=== PATIENT | female | born 1955 | race Caucasian/White ===

== ENCOUNTER → 2017-02-14 | Outpatient (CLI) | payer BC ==
[~2017-02-14] MED LIST: REGADENOSON 0.4 MG/5 ML DISP.SYRIN. IV ONE
--- NOTE | 2017-02-14 15:01 | CARD ---
APPROVED REPORT EXAM: Two-dimensional and M-mode echocardiogram with Doppler and color Doppler. Other Information Quality : GoodHR: 72bpm Rhythm : NSR INDICATION Coronary vasospasm 2D DIMENSIONS RVDd3.0 (2.9-3.5cm)Left Atrium(2D)3.7 (1.6-4.0cm) IVSd1.1 (0.7-1.1cm)Aortic Root(2D)2.5 (2.0-3.7cm) LVDd4.3 (3.9-5.9cm)LVOT Diameter2.2 (1.8-2.4cm) PWd1.1 (0.7-1.1cm)LVDs2.7 (2.5-4.0cm) FS (%) 37.8 %SV57.7 ml LVEF(%)68.2 (>50%) Aortic Valve AoV Peak Jerry.220.5cm/sAoV VTI44.3cm AO Peak GR.19.5mmHgLVOT Peak Jerry.153.9cm/s AO Mean GR.10mmHgAVA (VMAX)2.68cm2 Mitral Valve MV E Ohywjaaq259.2cm/sMV E Peak Gr.6mmHg MV DECEL [id number] A Nntdipog69.3cm/s MV E Mean Gr.2mmHgE/A Ratio1.3 MV A Epzqlzmk31vt Pulmonary Valve PV Peak Ewegxrok089.2cm/s Tricuspid Valve TR P. Ydylzprq035bj/sTR Peak Gr.41mmHg Pulmonary Vein S1 Xdmhrnkd65.4cm/sD2 Gnmbkcia02.6cm/s PVa mqypadty34cbdz LEFT VENTRICLE The left ventricle is normal size. There is mild concentric left ventricular hypertrophy. The left ve ntricular systolic function is normal. The Ejection Fraction is 65-70%. There is normal LV segmental wall motion. The left ventricular diastolic function and filling is normal for age. RIGHT VENTRICLE The right ventricle is normal size. There is normal right ventricular wall thickness. The right ventr icular systolic function is normal. ATRIA The left atrium is mildly dilated. The right atrium size is normal. The interatrial septum is intact with no evidence for an atrial septal defect or patent foramen ovale as noted on 2-D or Doppler imagi ng. AORTIC VALVE The aortic valve is mildly sclerotic. The aortic valve is probably bicuspid. Doppler and Color Flow r evealed no significant aortic regurgitation. There is no significant aortic valvular stenosis. MITRAL VALVE Mitral annular calcification is mild. The mitral valve leaflets are thickened. There is no evidence o f mitral valve prolapse. There is no mitral valve stenosis. Doppler and Color Flow revealed mild mitr al regurgitation. TRICUSPID VALVE Doppler and Color Flow revealed mild tricuspid regurgitation. The pulmonary artery systolic pressure is estimated at 44 mmHg. There is mild pulmonary hypertension. PULMONIC VALVE The pulmonic valve is not well visualized but appears to open adequately. Doppler and Color Flow reve aled no pulmonic valvular regurgitation. There is no pulmonic valvular stenosis by spectral Doppler. GREAT VESSELS The aortic root is normal in size. The ascending aorta is normal in size. The pulmonary artery is nor mal. The IVC is normal in size and collapses >50% with inspiration. PERICARDIAL EFFUSION There is no evidence of significant pericardial effusion. Critical Notification Critical Value: No <Conclusion> The left ventricular systolic function is normal. The Ejection Fraction is 65-70%. There is normal LV segmental wall motion. Mild mitral regurgitation. Mild tricuspid regurgitation. The pulmonary artery systolic pressure is estimated at 44 mmHg. There is no evidence of significant pericardial effusion.
--- NOTE | 2017-02-15 12:48 | RAD ---
APPROVED REPORT Test Type: Pharmacological Stress Nurse/Tech: Laurie Jarrett R.N. Test Indications: coronary vasospasm Cardiac History: cad Medications: see ehr Medical History: see ehr Resting ECG: sr Resting Heart Rate: 66 bpm Resting Blood Pressure: 122/67mmHg Pretest Chest Pain: No chest pain Nurse/Tech Notes lungs cta, heart tones regular Consent: The procedure was explained to the patient in lay terms. Informed consent was witnessed. Roni eout was entered into [employer]. History and Stress Test performed by Laurie Jarrett R.N. Pharm. Details Pharmacologic stress testing was performed using 0.4mg per 5ml of regadenoson given intravenously ove r 7-10 seconds. Stress Symptoms No chest pain or symptoms. POST EXERCISE Reason for Termination: Infusion complete Target HR: No Max HR: 96 bpm Max Blood Pressure: 140/66mmHg Chest Pain: No. Arrhythmia: No. ST Change: No. INTERPRETATION Stress EKG Conclusion: Baseline EKG showed sinus rhythm. No ischemic changes at peak stress. No arr hythmias. Imaging Protocol IMAGE PROTOCOL: Rest Tc-99m/stress Tc-99m 2 days Rest: Stress: Viability: Radiopharm.Tc99m WecsswikcHk76v Sestamibi Dose31.4mCi 32mCi Duration 15min. 15min. Img Date 02/14/2017 02/15/2017 Inj-Img Odkr15zoq. 60min. Rest Admin Site:IV - Right HandAdministrator:NATALIA Kay Stress Admin Site: IV - Left HandAdministrator: Joseph Green, (R)(N) STRESS DATA End Diast. Vol.65.0mlAv. Heart Rate73.0bpm End Syst. Vol.11.0mlCO Index BSA0.0L/min Myocardial Yjjv186.0gEject. Gtdeydim66.0% Stress Rates Pk. Fill Rate4.42EDV/secLVtime Pk. Fill 230.45msec Pk. Empty Rate5.38ESV/secLVtime Pk. Kzbmq924.76msec 06/29 Pk. Fill1.20EDV/sec Stress Scores Regional WT0.00Summed WT0.00 Regional WM0.00Summed WM0.00 Study quality was good. Left Ventricular size was at Rest and Stress. Lung uptake was Normal. Left Ventricular ejection fraction is 83%. LV Perfusion Scintigraphic images did not show any fixed or reversible defects. However, there is transient ische hiren dilation seen in the stress images. Wall Motion Normal regional wall motion. LV Perf. Quant 17 Seg. SSS1.00 17 Seg. SRS0.00 17 Seg. SDS1.00 Stress Defect Extent (% LAD)0.00Rest Defect Extent (% LAD)0.00Rev. Defect Extent (% LAD)0.00 Stress Defect Extent (% LCX) 7.50Rest Defect Extent (% LCX)0.00Rev. Defect Extent (% LCX)7.50 Stress Defect Extent (% RCA)0.00Rest Defect Extent (% RCA)0.00Rev. Defect Extent (% RCA)0.00 Stress Defect Extent (% DIMPLE)1.30Rest Defect Extent (% DIMPLE)0.00Rev. Defect Extent (% DIMPLE)1.30 Conclusion 1. Regadenoson cardioisotope stress test did not show any evidence of ischemia or infarct. 2. However, there is transient ischemic dilation seen in stress images. Consider cardiac cath based on level of clinical suspicion. 3. Normal left ventricular systolic function with ejection fraction calculated at 83%.
== END | disposition home or self-care (01) ==
LOC: NM 10:35
PROVIDERS: ATTEND Internal Medicine Cardiovascular Disease
DX: I08.1 Rheumatic disorders of both mitral and tricuspid valves (principal); I20.1 Angina pectoris with documented spasm
CPT/HCPCS: 78452; 93017; 93306; 96374; 96375; A9500; J2785

== ENCOUNTER → 2017-02-25 | Outpatient (CLI) | payer BC ==
[2017-02-25] VITALS (10 sets, daily range): BP systolic 109–153; BP diastolic 58–74
[~2017-02-25] VITALS: Ht 157.5 cm; Wt 97.5 kg
[~2017-02-25] MED LIST changes: +ASCO500C PO; +ASPI-630 PO; +CALC500T30 PO; +CHLO1CAP PO; +CHLO750T PO; +CHOL100013 PO; +CONTRAST GIVEN MC PRN; +CRESTOR5 MG PO; +CYCL10TA2 PO; +DICL100G18 TP; +DICL112S2 TP; +ESCITALOPRAM OX20 MG PO; +ESOM40CA PO; +FEXO180T16 PO; +HEPARIN for IV BOLUS 10,000 UNIT/10 ML VIAL. IART ONE; +HEPARIN for IV BOLUS 10,000 UNIT/10 ML VIAL. ONE; +IODIXANOL 320 MG/ML 100 ML VIAL. ONE; +IOHEXOL 300 MG/ML 100ML VIAL. IART ONE; +IOHEXOL 300 MG/ML 100ML VIAL. ONE; +ISOS60TA2 PO; +IV 1/2 NORMAL SALINE 1,000 ML IV SCH; +LEVO50TA5 PO; +LIDOCAINE 2% 20 ML VIAL. IJ ONE; +LIDOCAINE 2% 20 ML VIAL. ONE; +LOSA25TA4 PO; +MAGN400C PO; +METO100T11 PO; +MIDAZOLAM HCL/PF 2 MG/2 ML VIAL. IV ONE; +MIDAZOLAM HCL/PF 2 MG/2 ML VIAL. ONE; +NITR0.4T SL; +NITROGLYCERIN 200 MCG/2 ML SYRINGE FOR CATH/VASC LAB. IART ONE; +NITROGLYCERIN 200 MCG/2 ML SYRINGE FOR CATH/VASC LAB. ONE; +OMEG100021 PO; -REGADENOSON 0.4 MG/5 ML DISP.SYRIN. IV ONE; +UBID100C26 PO; +VERAPAMIL 5 MG/2 ML VIAL. IART ONE; +VERAPAMIL 5 MG/2 ML VIAL. ONE; +fentaNYL PF VIAL 100 MCG/2 ML VIAL IV ONE; +fentaNYL PF VIAL 100 MCG/2 ML VIAL ONE
[2017-02-25 07:13] LABS: HEMATOCRIT 38.1 % (36.0-47.0); HEMOGLOBIN 12.7 g/dL (12.0-15.5); RED BLOOD COUNT 4.29 x10^6/uL (3.50-5.40); RED CELL DISTRIBUTION WIDTH 12.5 % (11.5-14.5); WHITE BLOOD COUNT 6.3 x10^3/uL (4.0-11.0)
[2017-02-25 07:25] LABS: PROTHROMBIN TIME PATIENT 12.4 SEC (11.7-14.0)
[2017-02-25 07:32] LABS: CALCIUM 9.7 mg/dL (8.5-10.1); GFR 56.2; POTASSIUM 4.1 mmol/L (3.5-5.1)
--- NOTE | 2017-02-25 09:19 | PDOC ---
MODERATE SEDATION ASSESSMENT RISKS/ALTERNATIVES Risks/Alternatives Risks and alternatives of this type of sedation and procedure discussed with: RISK/ALTERNATIVES: Patient H & P ON CHART H & P H & P on chart and reviewed for co-morbid conditions and appropriate labs. H&P ON CHART: Yes STATUS PREG STATUS ASSESSED: N/A MEDS/ALLERGIES REVIEWED Meds/Allergies Reviewed Medications and Allergies including time and route of recently administered narcotics and sedatives. MEDS/ALLERGIES REVIEWED: Yes ASA RATING ASA RATING: II AIRWAY ASSESSMENT Airway Assessment Airway patency, oral function limitations, presence of caps, crowns, dentures, partials, and ability to extend neck assessed. AIRWAY ASSESSMENT: Yes MALLAMPATI SCORE MALLAMPATI SCORE: II PRE-SEDATION ASSESSMENT PRE-SEDATION ASSESSMENT: Yes CHARLES TEMPLE MD Feb 25, 2017 09:19
--- NOTE | 2017-02-25 10:00 | CARD ---
APPROVED REPORT Procedure(s) performed: Left heart catheterization, selective coronary angiography and left ventricul ography via right transradial approach Moderate sedation: 25 minutes INDICATION The indication(s) include : Unstable angina, nonsustained ventricular tachycardia. PROCEDURE NARRATIVE After explaining the risks, benefits and alternative options, informed consent was obtained from layla ent. Patient was brought to the cardiac Coin Machine Operator and right wrist was prepped and draped in the usual fashion after confirming a positive modified Wayne's test. Arterial access was obtained in the [facility] radial artery and a 6 Jamaican sheath was inserted. 6 Jamaican Yared and 6 Jamaican JL 3.5 catheters we re used to perform selective angiography of the right and left coronary arteries respectively. 6 [facility] pigtail catheter was used to perform left ventriculography. Patient tolerated the procedure well . Hemostasis was achieved using TR band. There were no immediate complications. The following find ings were noted. FINDINGS 1. Hemodynamics: Left ventricular end-diastolic pressure of 37 mmHg. No pullback gradient across th e aortic valve. 2. Left ventriculography: Normal left ventricle systolic function with ejection fraction estimated at 65-70%. No significant mitral regurgitation seen. 3. Coronary angiography: a. The left main coronary artery arose from the left sinus of Valsalva, was short, gave rise to the left anterior descending and left circumflex arteries and did not show any significant stenosis. b. The left anterior descending artery did not show any significant stenosis. c. The left circumflex artery did not show any significant stenosis. d. The right coronary artery was a large and dominant vessel arising from the right sinus of Valsalv a that showed 30% stenosis in the midsegment. Conclusion 1. No significant coronary artery disease 2. Normal left ventricle systolic function with ejection fraction estimated at 65-70%. Recommendations Medical Therapy
== END | disposition home or self-care (01) ==
LOC: CCL 06:33
PROVIDERS: ATTEND Internal Medicine Cardiovascular Disease
DX: I20.0 Unstable angina (principal); I47.2 Ventricular tachycardia; I25.10 Atherosclerotic heart disease of native coronary artery without angina pectoris; E78.00 Pure hypercholesterolemia, unspecified; I10 Essential (primary) hypertension; E03.9 Hypothyroidism, unspecified; F32.9 Major depressive disorder, single episode, unspecified; Z87.39 Personal history of other diseases of the musculoskeletal system and connective tissue; Z86.69 Personal history of other diseases of the nervous system and sense organs; Z88.2 Allergy status to sulfonamides; Z88.8 Allergy status to other drugs, medicaments and biological substances; Z79.01 Long term (current) use of anticoagulants
CPT/HCPCS: 36415; 80048; 85027; 85610; 85730; 93458; C1769; C1892; J1644; J2250; J3010; J3490; Q9967; 99152; 99153; J2001

== ENCOUNTER 2017-07-30 21:54 | Emergency (ER) | payer BC ==
[2017-07-30] MEDS: IBUPROFEN 600 MG TABLET. PO ×2 (22:22)
== END 2017-07-30 23:08 | disposition home or self-care (01) ==
LOC: ER 21:54
DX: S93.402A Sprain of unspecified ligament of left ankle, initial encounter (principal); Z88.2 Allergy status to sulfonamides; Z88.8 Allergy status to other drugs, medicaments and biological substances; X58.XXXA Exposure to other specified factors, initial encounter; Y93.01 Activity, walking, marching and hiking; Y92.481 Parking lot as the place of occurrence of the external cause; Y99.8 Other external cause status
CPT/HCPCS: 29515; 73610; 99284

== ENCOUNTER → 2018-04-20 | Outpatient (CLI) | payer BC ==
[2017-07-30 22:08] VITALS: BP 138/67
[~2018-04-20] MED LIST changes: -CONTRAST GIVEN MC PRN; -HEPARIN for IV BOLUS 10,000 UNIT/10 ML VIAL. IART ONE; -HEPARIN for IV BOLUS 10,000 UNIT/10 ML VIAL. ONE; -IODIXANOL 320 MG/ML 100 ML VIAL. ONE; -IOHEXOL 300 MG/ML 100ML VIAL. IART ONE; -IOHEXOL 300 MG/ML 100ML VIAL. ONE; -IV 1/2 NORMAL SALINE 1,000 ML IV SCH; -LIDOCAINE 2% 20 ML VIAL. IJ ONE; -LIDOCAINE 2% 20 ML VIAL. ONE; -LOSA25TA4 PO; +LOSA25TA5 PO; +METO-247 PO; -METO100T11 PO; -MIDAZOLAM HCL/PF 2 MG/2 ML VIAL. IV ONE; -MIDAZOLAM HCL/PF 2 MG/2 ML VIAL. ONE; -NITROGLYCERIN 200 MCG/2 ML SYRINGE FOR CATH/VASC LAB. IART ONE; -NITROGLYCERIN 200 MCG/2 ML SYRINGE FOR CATH/VASC LAB. ONE; -VERAPAMIL 5 MG/2 ML VIAL. IART ONE; -VERAPAMIL 5 MG/2 ML VIAL. ONE; -fentaNYL PF VIAL 100 MCG/2 ML VIAL IV ONE; -fentaNYL PF VIAL 100 MCG/2 ML VIAL ONE
--- NOTE | 2018-04-20 13:46 | CARD ---
MR#: [id number] Date of Study: 04/20/2018 Ordering Physician: CHARLES TEMPLE, Referring Physician: CHARLES TEMPLE, Tech: Maribel Vasques APPROVED REPORT EXAM: Two-dimensional and M-mode echocardiogram with Doppler and color Doppler. Other Information Quality : AverageHR: 82bpm INDICATION CAD RISK FACTORS Hypertension Hyperlipidemia Diabetes 2D DIMENSIONS RVDd3.1 (2.9-3.5cm)Left Atrium(2D)4.0 (1.6-4.0cm) IVSd0.8 (0.7-1.1cm)Aortic Root(2D)2.4 (2.0-3.7cm) LVDd5.1 (3.9-5.9cm)LVOT Diameter2.1 (1.8-2.4cm) PWd1.0 (0.7-1.1cm)LVDs2.1 (2.5-4.0cm) FS (%) 58.8 %SV109.8 ml Aortic Valve AoV Peak Jerry.223.4cm/sAoV VTI44.3cm AO Peak GR.20.0mmHgLVOT Peak Jerry.152.4cm/s AO Mean GR.10mmHgAVA (VMAX)2.38cm2 Mitral Valve MV E Owahyiqj01.2cm/sMV DECEL PANE822up MV A Vtrvpyrp476.9cm/sE/A Ratio1.0 Pulmonary Valve PV Peak Wkddepaq16.9cm/s Tricuspid Valve TR P. Gydxtyjp455xo/sRAP PKIASRBL8ylSm TR Peak Gr.27jwLnMDBI19fxKy Pulmonary Vein S1 Deqzkijf02.3cm/sD2 Vwenkwqa80.8cm/s PVa lmfxkoet003xjoo LEFT VENTRICLE The left ventricle is normal size. There is normal left ventricular wall thickness. The left ventricu lar systolic function is normal and the ejection fraction is within normal range. The Ejection Fracti on is 60-65%. There is normal LV segmental wall motion. Transmitral Doppler flow pattern is Grade I-a bnormal relaxation pattern. RIGHT VENTRICLE The right ventricle is normal size. There is normal right ventricular wall thickness. The right ventr icular systolic function is normal. ATRIA The left atrium size is normal. The right atrium size is normal. The interatrial septum is intact wit h no evidence for an atrial septal defect or patent foramen ovale as noted on 2-D or Doppler imaging. AORTIC VALVE The aortic valve is mildly thickened but opens well. Doppler and Color Flow revealed trace aortic reg urgitation. There is no significant aortic valvular stenosis. MITRAL VALVE The mitral valve is normal in structure and function. There is no mitral valve stenosis. Doppler and Color-flow revealed trace mitral regurgitation. TRICUSPID VALVE The tricuspid valve is not well visualized. Doppler and Color Flow revealed trace tricuspid regurgita tion. PULMONIC VALVE The pulmonic valve is not well visualized. Doppler and Color Flow revealed trace pulmonic valvular re gurgitation. GREAT VESSELS The aortic root is normal in size. Normal pulmonary venous flow (Doppler). PERICARDIAL EFFUSION There is no evidence of significant pericardial effusion. Critical Notification Critical Value: No <Conclusion> The left ventricle is normal size. The left ventricular systolic function is normal and the ejection fraction is within normal range. The Ejection Fraction is 60-65%. There is no significant aortic valvular stenosis. Doppler and Color Flow revealed trace aortic regurgitation. Doppler and Color-flow revealed trace mitral regurgitation. Doppler and Color Flow revealed trace tricuspid regurgitation. Signed by : Madi Brian MD Electronically Approved : 04/20/2018 13:45:44
== END | disposition home or self-care (01) ==
LOC: ECHO 09:59
PROVIDERS: ATTEND Internal Medicine Cardiovascular Disease
DX: I25.118 Atherosclerotic heart disease of native coronary artery with other forms of angina pectoris (principal); I10 Essential (primary) hypertension; E78.5 Hyperlipidemia, unspecified; E11.9 Type 2 diabetes mellitus without complications
CPT/HCPCS: 93306

== ENCOUNTER → 2019-01-09 | Outpatient (CLI) | payer BC ==
[2017-07-30 22:08] VITALS: BP 138/67
[~2019-01-09] MED LIST changes: -LOSA25TA5 PO; +LOSA25TA54 PO
--- NOTE | 2019-01-09 15:43 | RAD ---
DATE: 01/09/2019 EXAM: MAMMO DELMY SCREENING BILATERAL HISTORY: Routine screening. COMPARISON: Previous mammogram from 2017. This study was interpreted with the benefit of Computerized Aided Detection (CAD). FINDINGS: Breast Density: HETERO The breast parenchyma Is heterogeneously dense, which could reduce sensitivity of mammography. Breast parenchyma level C. The skin and nipples are within normal limits. No suspicious calcifications, spiculated mass or area of architectural distortion. IMPRESSION: No mammographic evidence of malignancy. BI-RADS CATEGORY: 2 BENIGN FINDING(S) RECOMMENDED FOLLOW-UP: 12M 12 MONTH FOLLOW-UP PQRS compliance statement: Patient information was entered into a reminder system with a target due date for the next mammogram. Mammography is a sensitive method for finding small breast cancers, but it does not detect them all and is not a substitute for careful clinical examination. A negative mammogram does not negate a clinically suspicious finding and should not result in delay in biopsying a clinically suspicious abnormality. "Our facility is accredited by the [employer] Mammography Program."
== END | disposition home or self-care (01) ==
LOC: MAMMO 07:45
PROVIDERS: ATTEND Physician Assistant Surgical
DX: Z12.31 Encounter for screening mammogram for malignant neoplasm of breast (principal)
CPT/HCPCS: 77063; 77067

== ENCOUNTER → 2019-02-05 | Outpatient (CLI) | payer BC ==
[2017-07-30 22:08] VITALS: BP 138/67
--- NOTE | 2019-02-05 10:11 | KCIC ---
ABDOMEN COMPLETE: 02/05/2019 8:00 AM Indication: 63 years old Female. Elevated liver enzymes. Comparison: None. TECHNIQUE: Sonographic evaluation of the abdomen is performed utilizing grayscale and color Doppler. FINDINGS: Liver: There is diffuse increased echogenicity of the hepatic parenchyma compatible with diffuse hepatocellular disease, most commonly due to steatosis. This decreases the sensitivity of ultrasound for the detection of focal hepatic lesions.. There is hepatopedal flow within the portal venous system. Right hepatic lobe measures 17.1 cm. Biliary system: CBD measures 3.4 mm. There is no intrahepatic or extrahepatic biliary dilatation. Gallbladder: Surgically absent. Pancreas: Suboptimal visualization due to bowel gas. Spleen: 11.7 cm. Right kidney: 11.5 x 4.4 x 4.5 cm. No hydronephrosis. Mid to superior pole simple cyst measuring 2.7 x 1.9 x 3.0 cm. Left kidney: 11.4 x 4.0 x 4.6 cm. No hydronephrosis. Normal echotexture without focal mass or renal calculus. Abdominal aorta and IVC: Visualized portions unremarkable. Distal aorta measures 1.8 cm. Free fluid:None. IMPRESSION: 1. Diffuse increased echogenicity of the hepatic parenchyma suggestive of diffuse hepatocellular disease, most commonly due to hepatic steatosis. 2. No intrahepatic or extrahepatic biliary ductal dilatation status post cholecystectomy. Electronically signed by: Ekta Temple MD (02/05/2019 10:08 AM) [id number]
== END | disposition home or self-care (01) ==
LOC: KCIC US 08:04
PROVIDERS: ATTEND Physician Assistant Surgical
DX: N28.1 Cyst of kidney, acquired (principal)
CPT/HCPCS: 76700

== ENCOUNTER → 2019-05-01 | Outpatient (CLI) | payer BC ==
[2017-07-30 22:08] VITALS: BP 138/67
[~2019-05-01] MED LIST changes: -NITR0.4T SL; +NITR0.4T24 SL
--- NOTE | 2019-05-01 16:51 | CARD ---
MR#: [id number] Date of Study: 05/01/2019 Ordering Physician: CHARLES TEMPLE, Referring Physician: CHARLES TEMPLE Tech: Trina Landers RDCS APPROVED REPORT EXAM: Two-dimensional and M-mode echocardiogram with Doppler and color Doppler. Other Information Quality : Good INDICATION Coronary Vasospasm 2D DIMENSIONS RVDd2.3 (2.9-3.5cm)Left Atrium(2D)4.0 (1.6-4.0cm) IVSd1.3 (0.7-1.1cm)Aortic Root(2D)2.3 (2.0-3.7cm) LVDd4.1 (3.9-5.9cm)LVOT Diameter2.0 (1.8-2.4cm) PWd0.7 (0.7-1.1cm)LVDs2.7 (2.5-4.0cm) FS (%) 34.7 %SV48.0 ml LVEF(%)60.0 (>50%) Aortic Valve AoV Peak Jerry.209.4cm/sAoV VTI38.5cm AO Peak GR.17.5mmHgLVOT Peak Jerry.195.6cm/s AO Mean GR.9mmHgAVA (VMAX)2.87cm2 LUPE (VTI)3.40cm2 Mitral Valve MV E Yxtozyzt136.0cm/sMV DECEL LRAN216fq MV A Hngxeryf469.1cm/sE/A Ratio0.9 Tricuspid Valve TR P. Yjxghlxj649ud/sRAP EXPZESJY0mbUv TR Peak Gr.35fwFbVPST66ywRo Pulmonary Vein S1 Tfjfqjei08.7cm/sD2 Ldzjkpgl46.6cm/s LEFT VENTRICLE The left ventricle is normal size. There is normal left ventricular wall thickness. The left ventricu lar systolic function is normal and the ejection fraction is within normal range. The Ejection Fracti on is 60-65%. There is normal LV segmental wall motion. Transmitral Doppler flow pattern is Grade I-a bnormal relaxation pattern. RIGHT VENTRICLE The right ventricle is normal size. The right ventricular systolic function is normal. ATRIA The left atrium is mildly dilated. The right atrium size is normal. The interatrial septum is intact with no evidence for an atrial septal defect or patent foramen ovale as noted on 2-D or Doppler imagi ng. AORTIC VALVE The aortic valve is calcified but opens well. Doppler and Color Flow revealed no significant aortic r egurgitation. There is no significant aortic valvular stenosis. The anterior mitral valve leaflet krissy ears to be abudding the interventricular septal wall with a mild obstruction at 2.6 m/s. MITRAL VALVE The mitral valve is calcified but opens well. There is no evidence of mitral valve prolapse. There is no mitral valve stenosis. Doppler and Color-flow revealed trace to mild mitral regurgitation. TRICUSPID VALVE The tricuspid valve is normal in structure and function. Doppler and Color Flow revealed trace to mil d tricuspid regurgitation. There is mild pulmonary hypertension. The PA pressure was estimated at 42 mmHg. There is no tricuspid valve stenosis. PULMONIC VALVE The pulmonic valve is not well visualized. Doppler and Color Flow revealed mild pulmonic valvular reg urgitation. There is no pulmonic valvular stenosis. GREAT VESSELS The aortic root is normal in size. The ascending aorta is normal in size. The IVC is normal in size a nd collapses >50% with inspiration. PERICARDIAL EFFUSION There is no evidence of significant pericardial effusion. Critical Notification Critical Value: No <Conclusion> The left ventricular systolic function is normal and the ejection fraction is within normal range. Th e Ejection Fraction is 60-65%. There is normal LV segmental wall motion. There is no significant aortic valvular stenosis. There is mild ANIA noted without significant obstruction. Doppler and Color Flow revealed trace to mild tricuspid regurgitation. There is mild pulmonary hypert ension. The PA pressure was estimated at 42 mmHg. Signed by : Raman Nelson, Electronically Approved : 05/01/2019 16:51:11
== END | disposition home or self-care (01) ==
LOC: ECHO 15:20
PROVIDERS: ATTEND Internal Medicine Cardiovascular Disease
DX: I08.8 Other rheumatic multiple valve diseases (principal)
CPT/HCPCS: 93306

== ENCOUNTER → 2020-05-28 | Outpatient (CLI) | payer BC ==
[2017-07-30 22:08] VITALS: BP 138/67
[~2020-05-28] MED LIST changes: -DICL100G18 TP; +DICL100G54 TP
--- NOTE | 2020-05-30 10:27 | CARD ---
MR#: [id number] Date of Study: 05/28/2020 Ordering Physician: CHARLES TEMPLE, Referring Physician: CHARLES TEMPLE, Tech: Maribel Vasques APPROVED REPORT EXAM: Two-dimensional and M-mode echocardiogram with Doppler and color Doppler. Other Information Quality : FairHR: 70bpm Technically limited study due to body habitus. INDICATION Coronary Vasospasm RISK FACTORS Hypertension Hyperlipidemia Diabetes 2D DIMENSIONS RVDd3.2 (2.9-3.5cm)Left Atrium(2D)4.2 (1.6-4.0cm) IVSd1.0 (0.7-1.1cm)Aortic Root(2D)2.3 (2.0-3.7cm) LVDd5.3 (3.9-5.9cm)LVOT Diameter2.0 (1.8-2.4cm) PWd0.9 (0.7-1.1cm)LVDs3.7 (2.5-4.0cm) FS (%) 31.3 %SV80.7 ml LVEF(%)58.7 (>50%) Aortic Valve AoV Peak Jerry.193.6cm/sAoV VTI39.6cm AO Peak GR.15.0mmHgLVOT Peak Jerry.175.7cm/s LVOT VTI 36.51cmAO Mean GR.8mmHg LUPE (VMAX)2.21sm8JOD (VTI)2.98cm2 Mitral Valve MV E Ndaazkyn76.4cm/sMV DECEL CCUV134ni MV A Uaoptequ109.1cm/sMV HBW93oq E/A Ratio0.8MVA (PHT)2.98cm2 TDI E/Lateral E'14.7E/Medial E'17.8 Pulmonary Valve PV Peak Oxvcgaed68.5cm/sPV Peak Grad.3mmHg Tricuspid Valve TR P. Wmxrrpzj315vt/sRAP ZMFNFWRE8ujJz TR Peak Gr.49ywUvBSOD60asLa Pulmonary Vein S1 Jobfwqxs01.4cm/sD2 Pwbxahts74.1cm/s PVa bqslaevb552vshe LEFT VENTRICLE The left ventricle is normal size. There is normal left ventricular wall thickness. The left ventricu lar systolic function is normal and the ejection fraction is within normal range. The Ejection Fracti on is 50-55%. There is normal LV segmental wall motion. Transmitral Doppler flow pattern is Grade I-a bnormal relaxation pattern. RIGHT VENTRICLE The right ventricle is normal size. There is normal right ventricular wall thickness. The right ventr icular systolic function is normal. ATRIA The left atrium size is normal. The right atrium size is normal. The interatrial septum is intact wit h no evidence for an atrial septal defect or patent foramen ovale as noted on 2-D or Doppler imaging. AORTIC VALVE The aortic valve is thickened but opens well. Doppler and Color Flow revealed no significant aortic r egurgitation. There is no significant aortic valvular stenosis. Calculated aortic valve area is 2.68 cm2 with maximum pressure gradient of 20 mmHg and mean pressure gradient of 9 mmHg. MITRAL VALVE The mitral valve is thickened but opens well. There is no evidence of mitral valve prolapse. There is no mitral valve stenosis. Doppler and Color-flow revealed trace mitral regurgitation. TRICUSPID VALVE The tricuspid valve is normal in structure and function. Doppler and Color Flow revealed trace tricus pid regurgitation with an estimated PAP of 31 mmHg. There is no tricuspid valve stenosis. PULMONIC VALVE The pulmonic valve is not well visualized. Doppler and Color Flow revealed trace pulmonic valvular re gurgitation. There is no pulmonic valvular stenosis. GREAT VESSELS The aortic root is normal in size. The IVC is normal in size and collapses >50% with inspiration. PERICARDIAL EFFUSION There is no evidence of significant pericardial effusion. Critical Notification Critical Value: No <Conclusion> The left ventricular systolic function is normal and the ejection fraction is within normal range. Th e Ejection Fraction is 50-55%. There is normal LV segmental wall motion. Signed by : Raman Nelson, Electronically Approved : 05/29/2020 11:22:23
== END ==
LOC: ECHO 13:54
PROVIDERS: ATTEND Internal Medicine Cardiovascular Disease
DX: I25.111 Atherosclerotic heart disease of native coronary artery with angina pectoris with documented spasm (principal)
CPT/HCPCS: 93306

== ENCOUNTER → 2021-07-23 | Outpatient (CLI) | payer BC, MEDICARE ==
[2017-07-30 22:08] VITALS: BP 138/67
[~2021-07-23] MED LIST changes: +CYCL10TA19 PO; -CYCL10TA2 PO; -ISOS60TA2 PO; +ISOS60TA55 PO
--- NOTE | 2021-07-23 17:09 | CARD ---
MR#: [id number] Date of Study: 07/23/2021 Ordering Physician: CHARLES TEMPLE, Referring Physician: CHARLES TEMPLE Tech: Shi Smith [facility] APPROVED REPORT EXAM: Two-dimensional and M-mode echocardiogram with Doppler and color Doppler. Other Information Quality : AverageHR: 84bpm Rhythm : NSR INDICATION Cardiac Disease: RISK FACTORS Hypertension 2D DIMENSIONS RVDd2.9 (2.9-3.5cm)Left Atrium(2D)4.1 (1.6-4.0cm) IVSd1.2 (0.7-1.1cm)Aortic Root(2D)2.7 (2.0-3.7cm) LVDd3.4 (3.9-5.9cm)LVOT Diameter2.0 (1.8-2.4cm) PWd1.2 (0.7-1.1cm)LVDs1.7 (2.5-4.0cm) FS (%) 51.4 %SV40.6 ml LVEF(%)83.6 (>50%) Aortic Valve AoV Peak Jerry.230.0cm/sAoV VTI41.5cm AO Peak GR.21.2mmHgLVOT Peak Jerry.181.1cm/s AO Mean GR.10mmHgAVA (VMAX)2.54cm2 Mitral Valve MV E Otkenjpv29.5cm/sMV DECEL BXRO167dl MV A Wkambmzr127.4cm/sE/A Ratio0.7 Pulmonary Valve PV Peak Qdmmfojc708.3cm/s Tricuspid Valve TR P. Bvnwrdtx017ui/sTR Peak Gr.29mmHg LEFT VENTRICLE The left ventricle is normal size. There is mild concentric left ventricular hypertrophy. The left ve ntricular systolic function is normal and the ejection fraction is within normal range. Estimated eje ction fraction 60-65%. There is normal LV segmental wall motion. Transmitral Doppler flow pattern is Grade I-abnormal relaxation pattern. RIGHT VENTRICLE The right ventricle is normal size. There is normal right ventricular wall thickness. The right ventr icular systolic function is normal. ATRIA The left atrium size is normal. The right atrium size is normal. The interatrial septum is intact wit h no evidence for an atrial septal defect or patent foramen ovale as noted on 2-D or Doppler imaging. AORTIC VALVE The aortic valve is normal in structure and function. Doppler and Color Flow revealed no significant aortic regurgitation. There is no significant aortic valvular stenosis. MITRAL VALVE The mitral valve is normal in structure and function. There is no evidence of mitral valve prolapse. There is no mitral valve stenosis. Doppler and Color-flow revealed trace mitral regurgitation. TRICUSPID VALVE The tricuspid valve is normal in structure and function. Doppler and Color Flow revealed mild tricusp id regurgitation. Estimated PAP 32 mmHg. There is no tricuspid valve stenosis. PULMONIC VALVE Doppler and Color Flow revealed no pulmonic valvular regurgitation. There is no pulmonic valvular shraddha nosis. GREAT VESSELS The aortic root is normal in size. The ascending aorta is normal in size. The IVC is normal in size a nd collapses >50% with inspiration. PERICARDIAL EFFUSION There is no evidence of significant pericardial effusion. Critical Notification Critical Value: No <Conclusion> The left ventricular systolic function is normal and the ejection fraction is within normal range. E stimated ejection fraction 60-65%. There is normal LV segmental wall motion. Signed by : Raman Nelson, Electronically Approved : 07/23/2021 17:09:34
== END ==
LOC: ECHO 07:47
PROVIDERS: ATTEND Internal Medicine Cardiovascular Disease
DX: I07.1 Rheumatic tricuspid insufficiency (principal); I20.1 Angina pectoris with documented spasm
CPT/HCPCS: 93306; C8929